=== PATIENT | female | born 1970 ===

== ENCOUNTER 2021-12-06 17:02 | Emergency (ER) | payer OTHER ==
[2021-12-06 17:19] VITALS: BP 159/85; PULSE 71; TEMP 97.8; BMI 30.3
== END 2021-12-06 20:00 | disposition home or self-care (01) ==
LOC: JER 17:02
DX: S00.03XA Contusion of scalp, initial encounter (principal); S09.90XA Unspecified injury of head, initial encounter; W00.0XXA Fall on same level due to ice and snow, initial encounter
CPT/HCPCS: 70450-TC; 99284-25